=== PATIENT | female | born 2000 | race Caucasian/White ===

== ENCOUNTER 2022-05-02 10:46 | Outpatient (CLI) | payer OTHER, SELFPAY ==
[2022-05-02 11:01] LABS: Hemoglobin* 12.7 gm/dL (12.0-16.0)
[2022-05-02 13:52] LABS: Iron* 94 ug/dL (37-170)
[2022-05-02 14:02] LABS: Percent Iron Saturation 26 % (20-50); Total Iron Binding Capacity 354 ug/dL (265-497)
== END 2022-05-02 10:47 | disposition home or self-care (01) ==
PROVIDERS: Visit Provider Family Medicine
DX: F41.9 Anxiety disorder, unspecified (principal); R53.83 Other fatigue
CPT/HCPCS: 83540; 83550; 84443; 85018

== ENCOUNTER 2023-03-19 14:30 | Outpatient (CLI) | payer BC, SELFPAY | END 2023-03-19 14:31 | disposition home or self-care (01) | LOC: NFLDREF 03-23 09:00 | PROVIDERS: Visit Provider Nurse Practitioner Family | DX: J02.9 Acute pharyngitis, unspecified (principal); Z20.2 Contact with and (suspected) exposure to infections with a predominantly sexual mode of transmission | CPT/HCPCS: 87491; 87591 ==

== ENCOUNTER 2024-12-03 10:13 | Outpatient (CLI) | payer OTHER, SELFPAY ==
--- NOTE | 2024-12-06 10:55 | ONC.NURNOTE ---
Diagnosis: Iron Deficiency Anemia in
== END 2024-12-03 10:14 | disposition home or self-care (01) ==
LOC: NFLDREF 10:15
PROVIDERS: Visit Provider Obstetrics & Gynecology
DX: Z34.83 Encounter for supervision of other normal pregnancy, third trimester (principal)
CPT/HCPCS: 86592

== ENCOUNTER 2024-12-07 20:45 | Outpatient (CLI) | payer OTHER, SELFPAY ==
[2024-12-07] VITALS (7 sets, daily range): BP systolic 137; BP diastolic 71; PULSE 100–114; O2SAT 97
--- NOTE | 2024-12-07 20:52 | CRLHL7_ITS ---
For Patients: As a result of the Century Cures Act, medical imaging exams and procedure reports are released immediately into your electronic medical record. You may view this report before your referring provider. If you have questions, please contact your health care provider. INDICATION: Cramping, placenta previa TECHNIQUE: Ultrasound OB pelvis transabdominal and transvaginal. Real-time cook-scale imaging of the fetus was performed. COMPARISON: None. FINDINGS: Sonographic imaging demonstrates a single living intrauterine gestation. Fetus demonstrates a regular cardiac rate of 137 beats per minute. Fetus has a cephalic orientation. Amniotic fluid volume appears normal with an SD MAIL TRUCK DRIVER of 6.1 cm. Posterior placenta. The edge of the placenta is 1.7 cm from the internal cervical os. Normal cervical length, 5 cm. IMPRESSION.: Viable intrauterine . Low lying placenta measuring 1.7 cm from the internal cervical os. Normal cervical length and amniotic fluid volume. Dictated by Gabriel Witt MD @ 12/07/2024 10:59:16 PM (Electronically Signed)
[2024-12-07 22:28] LABS: Appearance Urine Cloudy (Clear); Bilirubin Urine Negative (Negative); Blood Urine Trace-intact (Negative); Color Urine Yellow (Yellow); Glucose Urine Negative (Negative); Ketones Urine Negative (Negative); Leukocyte Esterase Urine Negative (Negative); Nitrite Urine Negative (Negative); Protein Urine 2+ (Negative); Urobilinogen Urine 0.2 (0.2-1.0); pH Urine 6.5 (5.0-8.5)
[2024-12-07 22:49] LABS: RBC Urine 0-2 (0-2); Squamous Epithelial Cell Urine Moderate (None-Few); WBC Urine 0-2 (0-5)
[2024-12-07 22:50] LABS: Bacteria Urine Moderate
--- NOTE | 2024-12-07 23:08 | PC.OBNST ---
NST Note NST Note Start: 12/07/24 20:51 Freq: ONCE Status: Active Protocol: Document 12/07/24 23:07 JOSEY (Rec: 12/07/24 23:08 JOSEY Desktop) NST Note 2 Para (# of births) 0 EDC 02/14/25 Gestational Age In Weeks & Days 30 Weeks & 1 Days Patient Presented with Complaint(s) of Contractions/cramping Reactive Yes Appropriate for Gestational Age Yes OMID Harris RN Date 12/07/24 Reactive Yes Appropriate for Gestational Age Yes OMID Newberry RN Date 12/07/24 OB NST charge Yes Complete NST Note via Write Note Yes The provider's electronic signature indicates the NST is reactive/appropriate for gestational age. *Note to provider: If an addendum is required, open the patient's chart and click on the note under the Nurse/Allied Health tab.
== END 2024-12-07 23:12 | disposition home or self-care (01) ==
LOC: OB OUT 20:46 → OB 20:47
PROVIDERS: Visit Provider Obstetrics & Gynecology
DX: O47.03 False labor before 37 completed weeks of gestation, third trimester (principal); Z3A.33 33 weeks gestation of pregnancy
CPT/HCPCS: 59025; 76815; 76817; 81001; 81003; 87086; G0463

== ENCOUNTER 2024-12-09 08:20 | Outpatient (CLI) | payer OTHER, SELFPAY | END 2024-12-09 08:21 | disposition home or self-care (01) | LOC: NFLDREF 12-10 10:09 | PROVIDERS: Visit Provider Obstetrics & Gynecology | DX: R73.09 Other abnormal glucose (principal) | CPT/HCPCS: 82951; 82952 ==

== ENCOUNTER 2024-12-17 10:54 | Outpatient (CLI) | payer OTHER, SELFPAY | END 2024-12-17 10:55 | disposition home or self-care (01) | LOC: NFLDREF 10:55 | PROVIDERS: Visit Provider Obstetrics & Gynecology | DX: Z34.93 Encounter for supervision of normal pregnancy, unspecified, third trimester (principal); Z3A.31 31 weeks gestation of pregnancy | CPT/HCPCS: 87086 ==

== ENCOUNTER 2024-12-21 09:12 | Outpatient (CLI) | payer OTHER, SELFPAY ==
[2024-12-21 09:32] VITALS: BP 119/77; PULSE 107; RESP 18; TEMP 36.4; O2SAT 96
[2024-12-21] MEDS: CEFEPIME HCL 1 GM in 0.9 % SODIUM CHLORIDE Mini-bag 100 ML IVPB (11:07)
[2024-12-21 11:24] VITALS: BP 108/69; PULSE 98; RESP 16; O2SAT 96
== END 2024-12-21 11:26 | disposition home or self-care (01) ==
LOC: OP CLINIC 09:12
PROVIDERS: Visit Provider Obstetrics & Gynecology
DX: O23.43 Unspecified infection of urinary tract in pregnancy, third trimester (principal); Z16.24 Resistance to multiple antibiotics; Z3A.31 31 weeks gestation of pregnancy
CPT/HCPCS: 36410; 76937; A4221; C1751; J0692

== ENCOUNTER 2024-12-24 09:00 | Outpatient (RCR) | payer OTHER, SELFPAY ==
--- NOTE | 2024-12-07 10:02 | URNOTE ---
Request received for authorization for Iron Suctose (Venofer) ([id number]). Prior authorization is not required per [facility] Ref#[id number].
[2024-12-09 11:52] VITALS: BP 115/76; PULSE 117; RESP 16; TEMP 36.2; O2SAT 97
[2024-12-09 12:34] VITALS: BP 124/77; PULSE 112; RESP 16; O2SAT 95
[2024-12-09 13:02] VITALS: BP 125/80; PULSE 115; RESP 16; O2SAT 95
[2024-12-13] MEDS: SODIUM CHLORIDE 0.9 % (FLUSH) 10 ML SYRINGE IVF (11:30)
[2024-12-13 11:37] VITALS: BP 120/78; PULSE 120; RESP 16; TEMP 36.3; O2SAT 16
[2024-12-13 12:58] VITALS: BP 128/79; PULSE 96; RESP 16; TEMP 36.1; O2SAT 97
[2024-12-15 11:41] VITALS: BP 120/75; PULSE 108; RESP 16; TEMP 36.7; O2SAT 97
[2024-12-15 11:58] VITALS: BP 118/75; PULSE 103; RESP 18; O2SAT 96
[2024-12-15 12:29] VITALS: BP 114/76
[2024-12-17 09:48] VITALS: BP 120/79; PULSE 120; RESP 16; TEMP 37.1; O2SAT 98
[2024-12-17] MEDS: SODIUM CHLORIDE 0.9 % (FLUSH) 10 ML SYRINGE IVF (10:07)
[2024-12-17 10:25] VITALS: BP 125/80; PULSE 112; RESP 16; TEMP 36.6; O2SAT 96
[2024-12-17 10:56] VITALS: BP 121/77; PULSE 115; RESP 16; TEMP 36.3; O2SAT 96
[2024-12-24 09:11] VITALS: BP 102/70; PULSE 103; RESP 15; TEMP 36.7; O2SAT 96
[2024-12-24] MEDS: SODIUM CHLORIDE 0.9 % (FLUSH) 10 ML SYRINGE IVF (09:39)
[2024-12-24 10:00] VITALS: BP 111/75; PULSE 99; RESP 16; TEMP 36.4; O2SAT 94
== END 2025-06-07 23:59 | disposition home or self-care (01) ==
LOC: CCIC 09:00
PROVIDERS: Visit Provider Clinical Nurse Specialist
DX: O99.013 Anemia complicating pregnancy, third trimester (principal); D64.9 Anemia, unspecified
CPT/HCPCS: 96365; 96374; J1756; J7050

== ENCOUNTER 2025-01-05 10:50 | Outpatient (CLI) | payer OTHER, SELFPAY | END 2025-01-05 10:51 | disposition home or self-care (01) | PROVIDERS: Visit Provider Obstetrics & Gynecology | DX: O23.43 Unspecified infection of urinary tract in pregnancy, third trimester (principal); Z3A.34 34 weeks gestation of pregnancy | CPT/HCPCS: 87086 ==

== ENCOUNTER 2025-01-18 09:55 | Outpatient (CLI) | payer OTHER, SELFPAY ==
--- NOTE | 2025-01-18 10:15 | CRLHL7_ITS ---
For Patients: As a result of the Century Cures Act, medical imaging exams and procedure reports are released immediately into your electronic medical record. You may view this report before your referring provider. If you have questions, please contact your health care provider. OB ULTRASOUND FOLLOWUP LIMITED, 01/18/2025 CLINICAL HISTORY: Gestational diabetes mellitus, obesity. COMPARISON: 12/20/2024, 12/07/2024, 11/22/2024. TECHNIQUE: Real time cook scale imaging of the fetus was performed transabdominally. FINDINGS: MAHAD by LMP/US: 02/14/2025. GA: 36 weeks 1 day. GESTATION: Single. CERVIX: Not visualized. POSITIONING: Vertex. AMNIOTIC FLUID: 6.0 cm SDP. PLACENTA: Technique: TA. Placenta Position: Posterior. DOPPLERS: Heart Rate: 137 bpm. BIOMETRY: BDP: 8.6 cm, 34 weeks 4 days. 18% HC: 32.8 cm, 37 weeks 2 days. 47% AC: 31.7 cm, 35 weeks 5 days. 47% FL: 6.8 cm, 34 weeks 6 days. 15% FL/AC Ratio: 21.33% HC/AC Ratio: 1.03. EFW: 2691 grams, 5 lb 15 oz. Age by this US: 35 weeks 4 days. MAHAD by this US: 02/18/2025. Percentile by MAHAD: 34% IMPRESSION: 1. Sonographic gestational age 35 weeks 4 days and sonographic due date 02/18/2025. Good correlation with dates. 2. Estimated weight 34th percentile. Abdominal circumference 47th percentile. Auugsto Clark M.D. Diagnostic Radiologist [email or web address] Transcribed: 3:23 pm DW/Dictated by: Augusto Clark MD @ 01/18/2025 2:43:00 PM (Electronically Signed)
== END 2025-01-18 09:56 | disposition home or self-care (01) ==
LOC: US 09:55
PROVIDERS: Visit Provider Obstetrics & Gynecology
DX: O24.419 Gestational diabetes mellitus in pregnancy, unspecified control (principal); O99.213 Obesity complicating pregnancy, third trimester; Z3A.36 36 weeks gestation of pregnancy
CPT/HCPCS: 76816; 87081; 87653

== ENCOUNTER 2025-01-25 09:58 | Outpatient (CLI) | payer OTHER, SELFPAY ==
--- NOTE | 2025-01-25 10:00 | CRLHL7_ITS ---
For Patients: As a result of the Cures Act, medical imaging exams and procedure reports are released immediately into your electronic medical record. You may view this report before your referring provider. If you have questions, please contact your health care provider. OBSTETRICAL ULTRASOUND ??? BIOPHYSICAL PROFILE, 01/25/2025 INDICATION: GDMA, obesity. Biophysical profile. CLINICAL HISTORY: MAHAD by US: 02/14/2025 Gestational Age: 37 weeks 1 day COMPARISON: 01/18/2025, 12/20/2024, 12/07/2024 TECHNIQUE: Real-time cook-scale imaging of the fetus was performed transabdominal. FINDINGS: Fetus: Single Cervix: Not visualized positioning: Vertex Amniotic Fluid: 4.8 cm SDP BIOPHYSICAL PROFILE: Gross body movements: 2 tone: 2 Respiratory activity: 2 Amniotic fluid SDP: 2 Total score: 8 Placenta technique: Transabdominal Placenta position: Posterior heart rate: 127 bpm IMPRESSION: Normal biophysical profile score of 8/8. AUGUSTO GOLDEN M.D. Diagnostic Radiologist [email or web address] Transcribed: 4:[address]/Dictated by: Augusto Golden MD @ 01/25/2025 3:16:00 PM (Electronically Signed)
== END 2025-01-25 09:59 | disposition home or self-care (01) ==
PROVIDERS: Visit Provider Obstetrics & Gynecology
DX: O24.419 Gestational diabetes mellitus in pregnancy, unspecified control (principal); O99.213 Obesity complicating pregnancy, third trimester; Z3A.37 37 weeks gestation of pregnancy
CPT/HCPCS: 76819

== ENCOUNTER 2025-02-01 09:59 | Outpatient (CLI) | payer OTHER, SELFPAY ==
--- NOTE | 2025-02-01 10:00 | CRLHL7_ITS ---
For Patients: As a result of the Cures Act, medical imaging exams and procedure reports are released immediately into your electronic medical record. You may view this report before your referring provider. If you have questions, please contact your health care provider. OB ULTRASOUND BIOPHYSICAL PROFILE, 02/01/2025 CLINICAL HISTORY: Gestational diabetes mellitus. COMPARISON: 01/25/2025, 01/28/2025. TECHNIQUE: Real time cook-scale imaging of the fetus was performed transabdominally. FINDINGS: Gestation: Single. MAHAD by LMP/US: 02/14/2025. GA: 38 weeks 1 day. CERVIX: Not visualized. POSITIONING: Vertex. AMNIOTIC FLUID: 7.5 cm SDP. BIOPHYSICAL PROFILE: Gross Body Movements: 2 Tone: 2 Respiratory Activity: 2 Amniotic Fluid: 2 Total Score: 8/8 PLACENTA: Technique: TA. Placenta position: Posterior. DOPPLERS: Heart Rate: 131 bpm. IMPRESSION: Normal biophysical profile score of 8/8. Augusto Clark M.D. Diagnostic Radiologist [email or web address] Transcribed: 11:21 am DW/Dictated by: Augusto Clark MD @ 02/01/2025 10:32:00 AM (Electronically Signed)
== END 2025-02-01 10:00 | disposition home or self-care (01) ==
LOC: US 10:00
PROVIDERS: Visit Provider Obstetrics & Gynecology
DX: O24.419 Gestational diabetes mellitus in pregnancy, unspecified control (principal); Z3A.38 38 weeks gestation of pregnancy
CPT/HCPCS: 76819

== ENCOUNTER 2025-02-08 09:52 | Outpatient (CLI) | payer OTHER, SELFPAY ==
--- NOTE | 2025-02-08 10:00 | CRLHL7_ITS ---
For Patients: As a result of the Century Cures Act, medical imaging exams and procedure reports are released immediately into your electronic medical record. You may view this report before your referring provider. If you have questions, please contact your health care provider. INDICATION: Gestational diabetes and obesity TECHNIQUE: Ultrasound OB pelvis transabdominal. Real-time cook-scale imaging of the fetus was performed with color Doppler and spectral Doppler analysis of the umbilical artery without stress testing. COMPARISON: 02/01/2025 FINDINGS: Sonographic imaging demonstrates a single living intrauterine gestation. Fetus demonstrates a regular cardiac rate of 133 beats per minute. Fetus has a cephalic orientation. The placenta lies posterior. Amniotic fluid volume appears normal with an DINESH of 19.3 cm. breathing movements, motion, and tone were all observed. IMPRESSION: Single viable intrauterine with a biophysical profile 05/20. Dictated by Shawn Lu MD @ 02/08/2025 12:32:06 PM (Electronically Signed)
== END 2025-02-08 09:53 | disposition home or self-care (01) ==
LOC: US 09:53
PROVIDERS: Visit Provider Obstetrics & Gynecology
DX: O24.419 Gestational diabetes mellitus in pregnancy, unspecified control (principal); O99.210 Obesity complicating pregnancy, unspecified trimester
CPT/HCPCS: 76819

== ENCOUNTER 2025-02-13 16:45 | Inpatient (IN) | payer OTHER, SELFPAY ==
[2025-02-13 17:09] VITALS: BMI 35.9
[2025-02-13 17:12] VITALS: PULSE 100; O2SAT 97
[2025-02-13 17:14] VITALS: BP 125/79; PULSE 95; TEMP 37
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
[2025-02-13] MEDS: miSOPROStoL 25 MCG/0.25 TABLET VAGINAL ×2 (17:54→21:23)
[2025-02-13 18:12] LABS: Appearance Urine Clear (Clear); Bilirubin Urine Negative (Negative); Blood Urine Negative (Negative); Color Urine Yellow (Yellow); Glucose Urine Negative (Negative); Ketones Urine Negative (Negative); Leukocyte Esterase Urine 1+ (Negative); Nitrite Urine Negative (Negative); Protein Urine Negative (Negative); Specific Gravity Urine 1.015 (1.000-1.030); Urobilinogen Urine 0.2 (0.2-1.0); pH Urine 6.5 (5.0-8.5)
[2025-02-13 18:40] LABS: RBC Urine 0-2 (0-2); WBC Urine >100 (0-5)
[2025-02-13 18:41] LABS: Bacteria Urine Many; Squamous Epithelial Cell Urine Moderate (None-Few)
[2025-02-13 21:31] VITALS: BP 121/82; PULSE 85; RESP 16; TEMP 36.7
[2025-02-13 23:30] LABS: Basophils Absolute Auto 0.04 K/uL (0.00-0.30); Basophils Percent Auto 0.4 % (0.0-3.0); Eosinophils Percent Auto 3.2 % (0.0-7.0); Hematocrit 39.2 % (33.0-51.0); Hemoglobin* 13.1 gm/dL (12.0-16.0); Immature Granulocytes Abs Auto 0.08 K/uL (0.00-0.30); Immature Granulocytes Pct Auto 0.9 %; Lymphocytes Percent Auto 22.6 % (20-44); Mean Corpuscular HGB Conc 33 gm/dL (32-36); Mean Corpuscular Hemoglobin 30 pg (26-34); Mean Corpuscular Volume 89 fL (80-100); Monocytes Percent Auto 7.5 % (0.0-11.0); Neutrophils Absolute Auto 6.09 K/uL (1.7-7.0); Neutrophils Percent Auto 65.4 % (42.0-72.0); Platelet Count* 258 K/uL (140-440); RDW Coefficient of Variation % 14.4 % (11.5-15.5); Red Blood Count 4.42 m/uL (4.00-5.20); Slide Review Reflex No; White Blood Count* 9.31 K/uL (4.50-11.00)
[2025-02-14] VITALS (32 sets, daily range): BP systolic 112–139; BP diastolic 73–94; PULSE 75–104; RESP 16–18; TEMP 36.4–36.9; O2SAT 93–97
[2025-02-14] MEDS: hydrOXYzine pamoate 25 MG CAPSULE 100 MG PO ×2 (01:37→22:44)
[2025-02-14] MEDS: miSOPROStoL 25 MCG/0.25 TABLET VAGINAL ×2 (01:39→04:49)
[2025-02-14] MEDS: MORPHINE 10 MG/ML inj IM ×2 (01:55→12:30)
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
[2025-02-14] MEDS: LACTATED RINGERS 1000 ML 1,000 ML 125 ML IV (12:43)
[2025-02-14] MEDS: OXYTOCIN 30 unit/500 ML in NS 30 UNIT/500 ML BAG IVPB (12:50)
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
[2025-02-14] MEDS: LACTATED RINGERS 1000 ML 1,000 ML 117 ML IV (20:57)
[2025-02-14] MEDS: SERTRALINE 50 MG TABLET PO (21:01)
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
[2025-02-15] VITALS (107 sets, daily range): BP systolic 98–146; BP diastolic 53–93; PULSE 80–112; RESP 16–18; TEMP 36.9–37.4; O2SAT 16–98
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
[2025-02-15] MEDS: fentaNYL 100 MCG/2 ML inj IVP ×3 (03:36→05:35)
[2025-02-15] MEDS: LACTATED RINGERS 1000 ML 1,000 ML 500 ML IV ×2 (05:24→10:35)
[2025-02-15] MEDS: BUPIVACAINE 0.25% PF 10 ML 10 ML ML EPIDURAL (06:18)
[2025-02-15] MEDS: ROPIVACAINE 0.2% 100 ml 100 ML 8 MG EPIDURAL (06:20)
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
[2025-02-15] MEDS: CALCIUM CARBONATE 500 MG CHEW PO ×2 (10:33→15:33)
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
[2025-02-15] MEDS: ROPIVACAINE 0.2% 100 ml 100 ML 10 MG EPIDURAL ×3 (14:02→21:56)
[2025-02-15] MEDS: diphenhydrAMINE 50 MG/ML inj IVP (16:12)
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
[2025-02-15] MEDS: LACTATED RINGERS 1000 ML 1,000 ML 125 ML IV (19:29)
[2025-02-15] MEDS: SERTRALINE 50 MG TABLET PO (21:00)
[2025-02-15] MEDS: LAMOTRIGINE 200 MG 1 EACH PO (21:02)
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
[2025-02-15] MEDS: lidocaine HCL 2 % JELLY (TOP) STERILE 6 ML TOPICAL (22:29)
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
--- NOTE | 2025-02-15 23:08 | P.OBPRC_ITS ---
Procedure Time Seen by Provider: 23:08 Date of procedure: 02/15/25 Procedure Done: Global Will [facility] bill your pro fee for this procedure?: Yes Procedure Description: DELIVERY BY SECTION Date of Service: 02/15/25 Delivery time: 2341 Summary: Admitted for IOL due to GDMA1 at 40w3d, Primary Lower uterine transverse section, Pfannenstiel, Closed with sutures, QBL 800 cc, No complications, Findings: SVE in OR: /1 - significant caput, as well as thick meconium on glove. Normal uterus, bilateral ovaries and tubes 4,6,8 Weight 3655 g Primary Indication: 1. Arrest of dilation at 6 cm Procedures: Primary Lower uterine transverse section Specimens Removed: Placenta Surgeon: Tonya Dillon MD Anesthesia: Epidural and TAP Report: Prophylactic antibiotic, 2 g of Ancef and 500 mg of Azithromycin were given before patient was taken to OR. After arrival to the operating room patient was placed in the supine position with left lateral tilt after re-dosing of epidural anesthesia. Laparotomy A pfannenstiel incision was made through the anterior abdominal wall with #10 scalpel approximately 2 cm above the pubic symphysis. The incision was extended sharply with the #10 scalpel through the subcutaneous tissue to the level of fascia. The fascia was entered sharply with a #10 scalpel (Pfannenstiel) in the midline and extended in semi-elliptical fashion with Allen scissor. The under lying muscles were dissected off the overlying fascia by grasping the superior aspect of fascia with two kelle clamps and blunt dissection was used along the midline. The fascia was further from rectus muscle with Allen scissor and/or cautery. In similar fashion, the lower aspect of fascia was also grasped with two Kelle clamps and both blunt and sharp dissection was used to separate fascia from rectus muscle. The rectus muscles were in the midline bluntly with digits. The peritoneum was then entered bluntly. The peritoneal incision was then extended superiorly and inferiorly under direct visualization with care being taken to avoid bladder and bowel. No adhesions were noted. The peritoneal incision was enlarged bluntly by lateral traction from the surgeon's and assistant operator's hand. Ernst retractor was inserted into the abdomen. Delivery A bladder flap was developed by grasping with Hungarian forcep and enter with [place] scissor. Then sharp and blunt dissection with Metzenbaum scissor and fingers were performed. A low transverse hysterotomy was made then with #10 scalpel and extended laterally and cephalad with fingers in a low transverse fashion with Manu Jane technique with care being taken to avoid injury to the fetus. The amniotic cavity (membrane) was then entered with spontaneous rupture of membrane, and the amniotic fluid was noted to be thick meconium, fetus was delivered cephalic. With delivery of the baby, no extension was noted. Infant handed to pediatric team right away due to poor tone at delivery. Placenta was delivered spontaneously with steady traction on cord and manual separation of placenta from uterine wall. Closure Uterine cavity was cleaned after placental delivery with lap sponge x 3. The hysterotomy was closed in two layers with stitches using 0 vicryl with continuous locking stitches and 0 monocryl in a continuous non locking manner. [address] in the middle of hysterotomy as imbricating stitch tore through at that point. Hemostasis was achieved as needed with electrocautery. The ovaries/tubes/uterine surface were evaluated. They were found to be normal. Ernst retractor removed and hemostasis was confirmed again. Fascia was closed with running stitches using 0 vicryl. Subcutaneous layer was irrigated. Hemostasis was checked for and found to be adequate. The subcutaneous layer was closed with running 2-0 chromic sutures. The skin was closed with 4-0 vicryl subcuticular sutures. The incision was cleaned and covered with a compression bandage and the procedure considered terminate at this time. Intraoperative Complications: None QBL: 800 cc Uterotonics/hemostatic agents: 40u of pitocin Disposition: The patient tolerated the procedure well. She was recovered in Obstetric PACU for close monitoring in stable condition, with a contracted uterus and normal transvaginal bleeding. The infant was sent to mother?s bedside after receiving CPAP and deep suction at initial resuscitation. A segment of the cord was obtained for umbilical cord gases. Cord blood gas was not available at time of operative note entered. The placenta was sent to pathology due to thick meconium, unscheduled delivery, and GDMA1. Debrief with OR team performed and specimen reviewed at the conclusion of the procedure.
[2025-02-15] MEDS: AZITHROMYCIN 500 MG in 0.9 % SODIUM CHLORIDE 250 ml 250 ML 255 MG IVPB (23:10)
[2025-02-15] MEDS: CEFAZOLIN 2 GM INJ IVP (23:30)
[2025-02-16] VITALS (40 sets, daily range): BP systolic 108–135; BP diastolic 66–84; PULSE 74–89; RESP 16–18; TEMP 36.6–36.7; O2SAT 93–98
[2025-02-16] MEDS: KETOROLAC 30 MG/ML inj IVP ×4 (00:18→19:23)
--- NOTE | 2025-02-16 00:59 | P.ANES_ITS ---
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
--- NOTE | 2025-02-16 00:59 | W.ANESCHARGE ---
Anesthesia Charges Start Date/Time Anesthesia Start Date: 02/15/25 Anesthesia Start Time: 23:19 Stop Date/Time Anesthesia Stop Date: 02/16/25 Anesthesia Stop Time: 00:48 Summary Emergency: WATER TREATMENT OPERATOR Coding CPT Codes CPT Codes: ANES/ANALG CS DELIVER ADD-ON - 81711 ([id number]) P2 - PATIENT W/MILD SYST DISEASE, QZ - WATER TREATMENT OPERATOR SVC W/O LENS SILVERER BY Additional Codes: Summary - Emergency: WATER TREATMENT OPERATOR ([id number])
--- NOTE | 2025-02-16 01:00 | W.PM.NB ---
Nerve Block Nerve Block Time Seen by Provider: 00:35 Date Seen: 02/16/25 Type of block requested by surgeon for post-operative analgesia: TAP Side: bilateral Time out performed: Yes Verification of patient name: Yes Verification of date of : Yes Site marking: site marked Name of person performing procedure: Sade Nieto Continuous monitoring Was continuous monitoring of O2 sat, B/P, quality assurance monitor chassis, recorded every 15 minutes?: Yes Procedure Checklist: sterile prep, needles and gloves Ultrasound guided. Images saved: Yes Medications given in 5ml increments after negative aspiration: Marcaine %: 0.25 mL: 30 Needle gauge: 20 and Exparel mL: 10 Needle gauge: 20 Patient tolerated procedure well: Yes Block Charges Block Charge (with Pro Fee): TAP Bilateral Use of Ultrasound Machine for Block: Yes- US Guidance/pain block
[2025-02-16 02:18] LABS: Rapid Plasma Reagin (RPR) Non Reactive (Non Reactive)
--- NOTE | 2025-02-16 07:27 | PM.OBPNVD1 ---
OB - PN:Subj Subjective Date Seen: 02/16/25 Narrative: Kathie is a 24 year old who was admitted for IOL for GDMA1 and proceeded to have a ? for arrest of labor. The patient feels well.? The pain is well controlled with current medications.? She has no new complaints.? Urinary output is adequate. Gomez catheter is still in place and will be removed today.? Has a good appetite, but has not eaten a meal yet. Is not yet passing flatus, but states she had a lot of stool just prior to her surgery late last night.? Has small amount of rubra lochia.? She has not yet ambulated, but plans to get up this morning. She is and reports it is going well.? OB - PN: Obj Exam Physical Exam: Vital signs: Temp Pulse Resp BP Pulse Ox 98.1 F 84 16 116/71 95 02/16/25 03:37 02/16/25 03:37 02/16/25 05:01 02/16/25 03:37 02/16/25 03:37 Narrative: GENERAL APPEARANCE:? normal affect, alert, no distress MOOD:? appropriate CHEST:? clear to auscultation HEART:? regular rate and rhythm ABDOMEN:? soft, the uterine fundus is At Umbilicus, Midline and is appropriate for the stage of recovery. EXTREMITIES:? normal and moderate edema Incision: Surgical dressing intact, no surrounding erythema, abnormal induration or discharge OB - PN: Obj Data Labs Labs: Laboratory Results - last 24 hr 02/13/25 23:25 RPR Screen Non Reactive OB - PN: A/P Delivery Assessment and Plan (1) care following delivery: Status: Acute (2) care and examination of lactating mother: Status: Acute (3) GDM (gestational diabetes mellitus): Status: Acute (4) Moderate episode of recurrent major depressive disorder: Status: Acute (5) Borderline personality disorder: Status: Acute (6) Anxiety: Status: Acute Plan Comments: PP day #1 Routine care May see as desired Hemoglobin is ordered for tomorrow morning already. Plan 2 hour glucose screen in the morning. Nurse is aware Anticipate discharge 02/17/2025
[2025-02-16 15:57] LABS: Creatinine* 0.9 mg/dL (0.5-1.5); Estimated Glomerular Filt Rate 90 ml/min
[2025-02-16] MEDS: 0.9 % SODIUM CHLORIDE 250 ml 250 ML 125 ML IV (16:43)
[2025-02-16] MEDS: SERTRALINE 50 MG TABLET PO (22:18)
[2025-02-17 00:01] VITALS: RESP 18; O2SAT 98
[2025-02-17] MEDS: KETOROLAC 30 MG/ML inj IVP ×2 (01:31→07:28)
[2025-02-17 03:20] VITALS: BP 128/86; PULSE 86; RESP 18; TEMP 36.6; O2SAT 96
[2025-02-17 07:42] VITALS: BP 134/89; PULSE 85; RESP 16; TEMP 36.7; O2SAT 96
[2025-02-17 08:21] LABS: Hemoglobin* 11.1 gm/dL (12.0-16.0)
[2025-02-17 08:42] LABS: Glucose Fasting 79 mg/dl (70-95)
--- NOTE | 2025-02-17 09:53 | P.DS_ITS ---
DS: Providers Provider Date Seen: 02/17/25 Date of admission: 02/13/25 16:45 Primary care physician: Not a Local Provider Admitting Clinician: Gayle Scales CNM Consults: 02/15/25 22:15 Consult to Physician [CONS] Routine Comment: Consulting Provider: Tonya Dillon Has provider been notified: Yes Attending Physician on discharge: Darian Reynolds CNM Date of Discharge: 02/17/25 DS: Diagnosis Discharge Diagnosis (1) care following delivery: Status: Acute (2) care and examination of lactating mother: Status: Acute (3) GDM (gestational diabetes mellitus): Status: Acute Exam Narrative: Exam Narrative: VSS. ?AfebrileGENERAL APPEARANCE: ?normal affect, alert, no distress MOOD: ?appropriate HEENT: normocephalic, neck supple, full ROM CHEST: ?Symmetrical chest wall movement. ?Normal respiratory effort. ?Clear to auscultation HEART: ?regular rate and rhythm ABDOMEN: ?soft, non-tender. Uterine fundus is firm, at Umbilicus, Midline and is appropriate for the stage of recovery. ?Bowel sounds present. EXTREMITIES: ?normal and no edema SKIN: warm, dry. ?Incision clean/dry/well approximated. ?No signs of infection noted. Const: Vital Signs, click to edit/add: Vital Signs - 24 hr 02/16/25 10:01 02/16/25 11:01 02/16/25 12:01 Temperature Pulse Rate [Pulse Oximeter] Respiratory Rate 16 16 16 Blood Pressure [Ri ght Arm] Pulse Oximetry Oxygen Delivery Me thod 02/16/25 12:20 02/16/25 13:01 02/16/25 14:01 Temperature Pulse Rate [Pulse Oximeter] 87 Respiratory Rate 16 16 16 Blood Pressure [Ri ght Arm] 108/71 Pulse Oximetry 96 Oxygen Delivery Me thod Room Air 02/16/25 15:01 02/16/25 16:51 02/16/25 16:52 Temperature Pulse Rate [Pulse Oximeter] 85 Respiratory Rate 16 16 16 Blood Pressure [Ri ght Arm] 122/79 Pulse Oximetry 98 Oxygen Delivery Me thod Room Air 02/16/25 17:05 02/16/25 18:01 02/16/25 19:01 Temperature Pulse Rate [Pulse Oximeter] Respiratory Rate 16 16 16 Blood Pressure [Ri ght Arm] Pulse Oximetry Oxygen Delivery Me thod 02/16/25 19:31 02/16/25 20:01 02/16/25 21:01 Temperature 97.8 F Pulse Rate [Pulse Oximeter] 83 Respiratory Rate 18 16 18 Blood Pressure [Ri ght Arm] 124/81 Pulse Oximetry 96 Oxygen Delivery Me thod Room Air 02/16/25 22:01 02/16/25 23:01 02/17/25 00:01 Temperature Pulse Rate [Pulse Oximeter] Respiratory Rate 16 16 18 Blood Pressure [Ri ght Arm] Pulse Oximetry Oxygen Delivery Me thod 02/17/25 03:20 02/17/25 07:42 Temperature 97.8 F 98.0 F Pulse Rate [Pulse Oximeter] 86 85 Respiratory Rate 18 16 Blood Pressure [Ri ght Arm] 128/86 134/89 Pulse Oximetry 96 96 Oxygen Delivery Me thod Room Air Room Air Documenting provider has reviewed patient's vital signs: yes OB - DS: Summary Hospital Course Hospital Course: Kathie is a 24 y.o. who was admitted to [facility] for induction of labor for GDMA1. ?She had an uncomplicated primary for failure to progress.?The patient feels well. ?The pain is well controlled with current medications. ?She has no new complaints. ?She is breast feeding and reports things are going well.? the patient has done well.? Vitals have been stable.? She has remained afebrile.? Has a good appetite, is tolerating a general diet. ?She is voiding without difficulty.? She is passing gas and has had a bowel movement.? She is ambulating and denies any dizziness.? Has Small amount of rubra lochia. ?She is undecided on her plan for prevention. Peripartum Data delivery method: Primary C/S; Labored Procedures: Procedures Operation Date: 02/15/25 23:00 Actual Procedure Side Surgeon p Section Not Applicable Tonyachula Dillon MD complications: none [place] Infant Gender: Female Infant Discharge Plan: Home Status at Discharge Functional status at discharge: independent ambulation Overall status at discharge: patient is progressing back to baseline Time Spent with Patient Time attestation: Total time spent providing and/or coordinating discharge services: Time spent: Less than 30 minutes Discharge Plan Discharge Disposition: Home, Self-Care Date of Admission: 02/13/25 16:45 Attending Provider on Discharge: Darian Reynolds Consulting Providers: Darian Reynolds; Tonya Dillon Primary Care Provider: Provider,Not a Local Condition: Stable Anticipated Discharge Date/Time: 02/17/25 12:00 Discharge Medications: New acetaminophen 500 mg Tablet 1,000 mg PO Q6H PRN (Reason: Pain) Qty: 0 0RF docusate sodium 100 mg Capsule 100 mg PO DAILY Qty: 90 0RF ibuprofen 600 mg Tablet 600 mg PO Q6H PRN (Reason: Pain) Qty: 60 0RF oxycodone 5 mg Tablet 5 - 10 mg PO Q4H PRN (Reason: Pain) Qty: 10 0RF Continued albuterol sulfate 90 mcg/actuation HFA aerosol inhaler 2 puff inhalation Q4-6H PRN (Reason: shortness of breath or wheezing) Qty: 1 0RF lamotrigine 200 mg tablet 200 mg PO DAILY Classic 28 mg iron- 800 mcg tablet 1 tab PO QDAY sertraline 50 mg tablet 50 mg PO QDAY Qty: 30 2RF Rx Instructions: Take 1/2 tablet (25 mg) x1 week then increase to full tablet (50 mg) daily Discontinued (DME) Test Strips Misc See Rx Instructions .MEDSUPPLY Qty: 30 0RF Rx Instructions: Test blood sugar 4 times daily. (DME) lancets Misc See Rx Instructions .MEDSUPPLY Qty: 100 3RF Rx Instructions: Test blood sugar 4 times daily. (DME) Blood Glucose Meter Misc See Rx Instructions .MEDSUPPLY Qty: 1 0RF Rx Instructions: As directed Discharge Orders: Discharge Order (Routine); Ordered 02/17/25 Ordered By: Darian Reynolds Patient Education: OB Over the Counter Medication Information, OB /Breast Feeding Additional Instructions: Discharge instructions were reviewed with the patient including signs and symptoms of infection and home going medications Lifting Restrictions: 20 pounds for 6 weeks No not submerge incision under water X 2 weeks? Nothing vaginally for 6 weeks: no tampons or intercourse Do not drive while taking narcotic pain medication(s) Off Work or School for 8 weeks 2-week visit: incision check, discuss infant feeding concerns, review control options and screen for anxiety/depression. 6-week visit for an annual exam. consultation services are available to all mothers and babies for the first year after delivery.? To make an appointment, please call [phone]. Activity Level: Activity as Tolerated Discharge Diet: Regular Follow Up Appointments: [facility] [Provider Group] Forms: [employer] Info Instructions
[2025-02-17 10:41] LABS: Glucose 2 Hour 106 mg/dl (70-155)
[2025-02-17] MEDS: ACETAMINOPHEN 500 MG TABLET 1000 MG PO (12:51)
[2025-02-17] MEDS: DOCUSATE SODIUM 100 MG CAPSULE PO (14:46)
[2025-02-17] MEDS: IBUPROFEN 600 MG TABLET PO (14:46)
== END 2025-02-17 16:04 | disposition home or self-care (01) | DRG 786 ==
PROVIDERS: Obstetrics & Gynecology; Admitting Provider Midwife; Visit Provider Midwife
PROC: 10D00Z1 Extraction of Products of Conception, Low, Open Approach (ICD-10-PCS; CPT 59514; principal; 2025-02-15 23:00)
DX: O24.420 Gestational diabetes mellitus in childbirth, diet controlled (principal); O75.3 Other infection during labor; N39.0 Urinary tract infection, site not specified; Z16.24 Resistance to multiple antibiotics; Z3A.40 40 weeks gestation of pregnancy; Z37.0 Single live birth; O99.344 Other mental disorders complicating childbirth; F41.9 Anxiety disorder, unspecified; F32.A Depression, unspecified; O99.214 Obesity complicating childbirth; E66.9 Obesity, unspecified; B96.89 Other specified bacterial agents as the cause of diseases classified elsewhere; F41.0 Panic disorder [episodic paroxysmal anxiety]; F60.3 Borderline personality disorder; O76 Abnormality in fetal heart rate and rhythm complicating labor and delivery; O62.1 Secondary uterine inertia; O77.0 Labor and delivery complicated by meconium in amniotic fluid; G89.18 Other acute postprocedural pain; O69.81X0 Labor and delivery complicated by cord around neck, without compression, not applicable or unspecified
CPT/HCPCS: 01967; 01968; 36415; 59200; 64488; 76942; 80170; 81001; 81003; 82565; 82947; 82950; 85018; 85025; 86592; 86850; 86900; 86901; 87086; 88307; 99140; A9270; C1726; J0456; J0665; J0666; J0690; J1100; J1200; J1580; J1885; J2270; J2274; J2405; J2590; J2795; J3010; J7050; J7120

== ENCOUNTER 2025-03-01 11:51 | Outpatient (CLI) | payer OTHER, SELFPAY | END 2025-03-01 11:52 | disposition home or self-care (01) | LOC: NFLDREF 03-09 03:09 | PROVIDERS: Visit Provider Advanced Practice Midwife | DX: R30.0 Dysuria (principal) | CPT/HCPCS: 87086 ==

== ENCOUNTER 2025-03-30 10:20 | Outpatient (CLI) | payer OTHER, SELFPAY ==
[2025-04-01 17:28] LABS: HPV Source Cervical; HPV, High Risk by TMA Not Detected
== END 2025-03-30 10:21 | disposition home or self-care (01) ==
PROVIDERS: Visit Provider Advanced Practice Midwife
DX: Z39.2 Encounter for routine postpartum follow-up (principal)
CPT/HCPCS: 87624; 87625; 88141; 88142

== ENCOUNTER 2025-06-08 09:00 | Outpatient (RCR) | payer OTHER, BC, SELFPAY | END 2025-09-02 11:09 | disposition home or self-care (01) | PROVIDERS: Visit Provider Advanced Practice Midwife | DX: N81.89 Other female genital prolapse (principal); K59.00 Constipation, unspecified; N39.3 Stress incontinence (female) (male); R35.0 Frequency of micturition; Z51.89 Encounter for other specified aftercare | CPT/HCPCS: 97110; 97161; 97535 ==